=== PATIENT | female | born 1995 | race African-American/Black ===

== ENCOUNTER 2017-05-25 23:56 | Emergency (ER) | payer SELFPAY ==
[~2017-05-25] VITALS: Ht 162.6 cm; Wt 49.0 kg
[2017-05-26] MEDS ORDERED: SODIUM CHLORIDE 0.9% 1,000 ML IV ONE (01:24)
[2017-05-26] MEDS ORDERED: ONDANSETRON HCL 4MG/2ML VIAL IV ONE (01:30)
[2017-05-26 01:38] LABS: BASOPHILS % 0.8 % (0.0-2.0); EOSINOPHILS % 0.9 % (0.0-5.0); HEMATOCRIT. 40.6 % (36.0-48.0); HEMOGLOBIN. 13.9 g/dL (12.0-16.0); LYMPHOCYTES % 28.2 % (20.0-50.0); MEAN CORPUSCULAR HEMOGLOBIN 27.2 pg (28.0-32.0); MEAN CORPUSCULAR VOLUME 79.3 fL (81.0-99.0); MEAN PLATELET VOLUME 8.4 fl (7.4-10.4); MONOCYTES % 9.3 % (2.0-8.0); NEUTROPHILS % 60.8 % (40.0-76.0); PLATELET 240 x1000/uL (130-400); RED BLOOD CELL COUNT 5.12 mill/uL (4.2-5.4); RED CELL DISTRIBUTION WIDTH 13.6 % (11.6-14.6)
[2017-05-26 01:46] LABS: CHLORIDE 98 mEq/L (98-107)
[2017-05-26 02:02] LABS: CARBON DIOXIDE 22 mEq/L (21-32)
[2017-05-26 02:09] LABS: B-HCG QUANTITATIVE 62798 mIU/mL (<3)
[2017-05-26 05:45] VITALS: BP 127/69
== END 2017-05-26 06:00 | disposition home or self-care (01) ==
LOC: ER 23:56
DX: O21.0 Mild hyperemesis gravidarum (principal); F12.10 Cannabis abuse, uncomplicated; Z3A.01 Less than 8 weeks gestation of pregnancy
CPT/HCPCS: 36415; 76801; 80053; 83690; 84702; 85025; 93005; 96361; 96374; 99285; J2405; J7030; Z7610

== ENCOUNTER 2018-05-21 19:05 | Emergency (ER) | payer OTHER ==
[~2018-05-21] VITALS: Ht 160 cm; Wt 55.0 kg
[2018-05-21 19:10] VITALS: BP 131/86
== END 2018-05-21 21:45 | disposition left against medical advice (07) ==
LOC: EDBD → ER 19:05
DX: O26.891 Other specified pregnancy related conditions, first trimester (principal); M54.2 Cervicalgia; Z3A.12 12 weeks gestation of pregnancy; Z53.21 Procedure and treatment not carried out due to patient leaving prior to being seen by health care provider; Y08.89XA Assault by other specified means, initial encounter; Y93.89 Activity, other specified; Y92.410 Unspecified street and highway as the place of occurrence of the external cause; Y99.8 Other external cause status

== ENCOUNTER 2018-05-21 22:22 | Emergency (ER) | payer OTHER ==
[~2018-05-21] VITALS: Ht 160 cm; Wt 44.0 kg
[2018-05-22] MEDS ORDERED: SODIUM CHLORIDE 0.9% 1,000 ML IV ONE (05:51)
[2018-05-22 08:31] VITALS: BP 107/64
== END 2018-05-22 08:41 | disposition home or self-care (01) ==
LOC: ER 22:22
DX: O26.892 Other specified pregnancy related conditions, second trimester (principal); S39.81XA Other specified injuries of abdomen, initial encounter; Z3A.27 27 weeks gestation of pregnancy; Y04.0XXA Assault by unarmed brawl or fight, initial encounter; Y93.89 Activity, other specified; Y92.018 Other place in single-family (private) house as the place of occurrence of the external cause
CPT/HCPCS: 36415; 76801; 81025; 84702; 96360; 99285; J7030

== ENCOUNTER 2018-11-18 13:47 | Observation (INO) | payer OTHER ==
[~2018-11-18] VITALS: Ht 162.6 cm; Wt 55.3 kg
[2018-11-18] MEDS ORDERED: LACTATED RINGERS 1,000 ML IV SCH (15:00)
[2018-11-18] MEDS ORDERED: TERBUTALINE SULFATE 1MG/ML VIAL SUBCUT PRN (15:00)
[2018-11-18] MEDS ORDERED: CEFAZOLIN 2,000 MG in DEXT 5% WATER 100 ML IV SCH (15:30)
[2018-11-18 16:14] LABS: CLARITY URINE CLEAR (CLEAR); COLOR URINE YELLOW (YELLOW); KETONES URINE 1+ (NEGATIVE); LEUKOCYTE ESTERASE URINE 2+ (NEGATIVE); NITRITE URINE NEGATIVE (NEGATIVE); OCCULT BLOOD URINE NEGATIVE (NEGATIVE); PH URINE 6.5 (4.5-8.0); PROTEIN URINE NEGATIVE (NEGATIVE); SPECIFIC GRAVITY URINE 1.016 (1.005-1.030)
== END 2018-11-18 17:30 | disposition home or self-care (01) ==
LOC: 8 EST LDRP 13:47
PROVIDERS: ADMIT Obstetrics & Gynecology; ATTEND Obstetrics & Gynecology
DX: O62.9 Abnormality of forces of labor, unspecified (principal); Z3A.00 Weeks of gestation of pregnancy not specified
CPT/HCPCS: 81003; 96365; 96372; 99281; G0378; J0690; J3105; J7060; 96360; 96361

== ENCOUNTER 2018-11-23 15:29 | Observation (INO) | payer OTHER ==
[~2018-11-23] VITALS: Ht 162.6 cm; Wt 55.8 kg
== END 2018-11-23 19:00 | disposition home or self-care (01) ==
LOC: 8 EST LDRP 15:29
PROVIDERS: ADMIT Obstetrics & Gynecology; ATTEND Obstetrics & Gynecology
DX: Z34.03 Encounter for supervision of normal first pregnancy, third trimester (principal); Z3A.36 36 weeks gestation of pregnancy
CPT/HCPCS: 76815; 76818; 99281; G0378

== ENCOUNTER 2018-12-16 07:36 | Inpatient (IN) | payer OTHER ==
[~2018-12-16] VITALS: Ht 162.6 cm; Wt 58.1 kg
[2018-12-16 08:59] LABS: BASOPHILS % 0.3 % (0.0-2.0); EOSINOPHILS % 1.1 % (0.0-5.0); HEMATOCRIT. 32.9 % (36.0-48.0); HEMOGLOBIN. 11.3 g/dL (12.0-16.0); LYMPHOCYTES % 23.4 % (20.0-50.0); MEAN CORPUSCULAR HEMOGLOBIN 29.4 pg (28.0-32.0); MEAN CORPUSCULAR VOLUME 85.8 fL (81.0-99.0); MEAN PLATELET VOLUME 8.7 fl (7.4-10.4); MONOCYTES % 11.8 % (2.0-8.0); NEUTROPHILS % 63.4 % (40.0-76.0); PLATELET 186 x1000/uL (130-400); RED BLOOD CELL COUNT 3.83 mill/uL (4.2-5.4); RED CELL DISTRIBUTION WIDTH 15.1 % (11.6-14.6)
[2018-12-16] MEDS ORDERED: LIDOCAINE HCL 1% 20ML VIAL (Pyxis) INJ INFIL PRN (09:00)
[2018-12-16] MEDS ORDERED: PENICILLIN G POTASSIUM 5 MMU in DEXT 5% WATER 100 ML IV SCH (09:00)
[2018-12-16] MEDS ORDERED: METHYLERGONOVINE MALEATE 0.2 MG/ML IM PRN (09:00)
[2018-12-16] MEDS ORDERED: MISOPROSTOL 100MCG TABLET VG PRN (09:00)
[2018-12-16] MEDS ORDERED: NALOXONE HCL 0.4 MG/ML 1ML VIAL IM PRN (09:00)
[2018-12-16] MEDS ORDERED: BUTORPHANOL TARTRATE 2 MG/ML VIAL IV PRN (09:00)
[2018-12-16 09:07] LABS: INR 0.9; PARTIAL THROMBOPLASTIN TIME 30.5 sec (23.4-31.0); PROTHROMBIN TIME 9.6 sec (9.6-11.0)
[2018-12-16] MEDS: LACTATED RINGERS 1,000 ML IV SCH ×2 (09:12→09:26)
[2018-12-16 09:16] LABS: CLARITY URINE CLEAR (CLEAR); COLOR URINE YELLOW (YELLOW); KETONES URINE TRACE (NEGATIVE); LEUKOCYTE ESTERASE URINE 2+ (NEGATIVE); NITRITE URINE NEGATIVE (NEGATIVE); OCCULT BLOOD URINE NEGATIVE (NEGATIVE); PH URINE 6.5 (4.5-8.0); PROTEIN URINE NEGATIVE (NEGATIVE)
[2018-12-16 09:36] LABS: *COCAINE SCREEN URINE NEGATIVE (NEGATIVE)
[2018-12-16 09:37] LABS: METHADONE URINE SCREEN NEGATIVE (NEGATIVE)
[2018-12-16 09:38] LABS: *AMPHETAMINES SCREEN URINE NEGATIVE (NEGATIVE); *BARBITURATES SCREEN URINE NEGATIVE (NEGATIVE); *BENZODIAZEPINES SCREEN URINE NEGATIVE (NEGATIVE); CANNABINOID URINE SCREEN NEGATIVE (NEGATIVE); OPIATES URINE SCREEN NEGATIVE (NEGATIVE); PHENCYCLIDINE URINE SCREEN NEGATIVE (NEGATIVE)
[2018-12-16] MEDS ORDERED: EPHEDRINE SULFATE 50MG/ML VIAL ONE (09:53)
[2018-12-16] MEDS ORDERED: SODIUM CHLORIDE 0.9% 10ML VIAL ONE (09:53)
[2018-12-16] MEDS ORDERED: FENTANYL CITRATE/PF 50MCG/ML 2ML VIAL ONE (09:53)
[2018-12-16] MEDS ORDERED: BUPIVACAINE HCL/PF 0.25% (2.5MG/ML) 10ML ONE (09:54)
[2018-12-16] MEDS ORDERED: ROPIVACAINE HCL 2MG/ML (0.2%) 200ML BOTTLE IR ONE (10:00)
[2018-12-16] MEDS ORDERED: ROPIVACAINE HCL/PF EPIDURAL 200 ML EPI NR (10:00)
[2018-12-16] MEDS: DEXT 5%/LR + PITOCIN 20UNITS/L 1,000 ML IV SCH ×2 (11:26→15:21)
[2018-12-16 12:29] LABS: HEPATITIS B SURFACE ANTIGEN NEGATIVE
[2018-12-16] MEDS ORDERED: PENICILLIN G POTASSIUM 2.5 MMU in DEXTROSE 5% WATER 50 ML IV SCH (13:00)
[2018-12-16] MEDS ORDERED: DEXT 5%/LR + PITOCIN 20UNITS/L 1,000 ML IV SCH (14:46)
[2018-12-16] MEDS ORDERED: IBUPROFEN 400MG TABLET PO PRN (15:00)
[2018-12-16] MEDS ORDERED: TETANUS, DIPHTHERIA, PERTUSSIS VAC/PF 0.5ML (>7YR OLD) IM ONE (15:00)
[2018-12-16] MEDS ORDERED: LANOLIN OINT 0.25 GM TUBE TOP PRN (15:00)
[2018-12-16] MEDS ORDERED: DIPHENHYDRAMINE 25MG CAPSULE PO PRN (15:00)
[2018-12-16] MEDS ORDERED: BENZOCAINE/LANOLIN/ALOE VERA SPRAY TOP PRN (15:00)
[2018-12-16] MEDS ORDERED: ACETAMINOPHEN WITH CODEINE 300/30MG TABLET PO PRN (15:00)
[2018-12-16] MEDS ORDERED: HEMORRHOIDAL SUPP PR PRN (15:00)
[2018-12-16] MEDS ORDERED: GLYCERIN/WITCH HAZEL LEAF MEDICATED PAD TOP PRN (15:00)
[2018-12-16] MEDS ORDERED: INFLUENZA VIRUS VACCINE(AFLURIA) 0.5ML SYR IM ONE (15:00)
[2018-12-16 17:05] VITALS: BP 111/68
[2018-12-16 18:00] VITALS: BP 108/64
[2018-12-16] MEDS: IBUPROFEN 800MG TABLET PO PRN (18:57)
[2018-12-16] MEDS: DOCUSATE SODIUM 100MG CAPSULE PO SCH (20:48)
[2018-12-16 22:00] VITALS: BP 111/77
[2018-12-17 06:00] VITALS: BP 112/71
[2018-12-17 07:50] LABS: BASOPHILS % 0.2 % (0.0-2.0); EOSINOPHILS % 1.4 % (0.0-5.0); HEMATOCRIT. 29.8 % (36.0-48.0); HEMOGLOBIN. 10.2 g/dL (12.0-16.0); LYMPHOCYTES % 25.7 % (20.0-50.0); MEAN CORPUSCULAR HEMOGLOBIN 29.4 pg (28.0-32.0); MEAN CORPUSCULAR VOLUME 85.7 fL (81.0-99.0); MEAN PLATELET VOLUME 8.3 fl (7.4-10.4); MONOCYTES % 9.8 % (2.0-8.0); NEUTROPHILS % 62.9 % (40.0-76.0); PLATELET 165 x1000/uL (130-400); RED BLOOD CELL COUNT 3.48 mill/uL (4.2-5.4); RED CELL DISTRIBUTION WIDTH 15.6 % (11.6-14.6)
[2018-12-17 08:00] VITALS: BP 116/80
[2018-12-17] MEDS: PRENATAL VIT/FE FUMARATE/FA TABLET PO SCH (09:03)
[2018-12-17] MEDS: FERROUS SULFATE 325MG TABLET PO SCH ×3 (09:03→16:56)
[2018-12-17] MEDS: IBUPROFEN 800MG TABLET PO PRN ×2 (09:04→16:56)
[2018-12-17] MEDS ORDERED: MEDROXYPROGESTERONE ACETATE 150MG/ML VIAL IM SCH (15:00)
[2018-12-17 15:34] VITALS: BP 100/66
[2018-12-17 19:10] VITALS: BP 110/64
[2018-12-17] MEDS: DOCUSATE SODIUM 100MG CAPSULE PO SCH (21:06)
[2018-12-17 23:28] VITALS: BP 108/66
[2018-12-18] MEDS ORDERED: TETANUS, DIPHTHERIA, PERTUSSIS VAC/PF 0.5ML (>7YR OLD) IM ONE (06:00)
[2018-12-18] MEDS: FERROUS SULFATE 325MG TABLET PO SCH (08:53)
[2018-12-18] MEDS: PRENATAL VIT/FE FUMARATE/FA TABLET PO SCH (08:53)
[2018-12-18 09:11] VITALS: BP 116/75
== END 2018-12-18 10:30 | disposition home or self-care (01) | DRG 560 ==
LOC: OBSVTOIN 07:36 → 8 EST LDRP 07:36 → 8EST 18:20
PROVIDERS: ADMIT Specialist; ATTEND Specialist
PROC: 10E0XZZ Delivery of Products of Conception, External Approach (ICD-10-PCS; principal; 2018-12-16)
PROC: 0W8NXZZ Division of Female Perineum, External Approach (ICD-10-PCS; 2018-12-16)
PROC: 3E0S3BZ Introduction of Anesthetic Agent into Epidural Space, Percutaneous Approach (ICD-10-PCS; 2018-12-16)
PROC: 00HU33Z Insertion of Infusion Device into Spinal Canal, Percutaneous Approach (ICD-10-PCS; 2018-12-16)
DX: O99.824 Streptococcus B carrier state complicating childbirth (principal); D64.9 Anemia, unspecified; Z37.0 Single live birth; Z3A.38 38 weeks gestation of pregnancy; O99.03 Anemia complicating the puerperium
CPT/HCPCS: 36415; 80305; 86592; 86703; 86762; 86850; 86900; 87340; 90715; 99281; J1050; J2540; J2590; J2795; J3010; J3490; J7060; A4315

== ENCOUNTER 2019-07-01 21:45 | Emergency (ER) | payer OTHER ==
[~2019-07-01] VITALS: Ht 160 cm; Wt 50.0 kg
[2019-07-01 22:13] VITALS: BP 121/82
== END 2019-07-01 23:23 | disposition home or self-care (01) ==
LOC: ER 21:45
DX: R45.89 Other symptoms and signs involving emotional state (principal)
CPT/HCPCS: 99283

== ENCOUNTER 2021-04-22 18:06 | Emergency (ER) | payer OTHER ==
[~2021-04-22] VITALS: Ht 165.1 cm; Wt 73.0 kg
[2021-04-22] MEDS ORDERED: LORAZEPAM 2MG/ML CPJ IM STA (20:01)
[2021-04-22] MEDS ORDERED: HALOPERIDOL LACTATE 5MG/ML VIAL IM STA (20:01)
[2021-04-22] MEDS ORDERED: DIPHENHYDRAMINE 50MG/ML VIAL IM STA (20:01)
[2021-04-22 21:02] LABS: BASOPHILS % 0.5 % (0.0-2.0); EOSINOPHILS % 0.7 % (0.0-5.0); HEMOGLOBIN. 12.6 g/dL (12.0-16.0); LYMPHOCYTES % 46.1 % (20.0-50.0); MEAN CORPUSCULAR HEMOGLOBIN 27.8 pg (28.0-32.0); MEAN CORPUSCULAR VOLUME 81.7 fL (81.0-99.0); MEAN PLATELET VOLUME 8.3 fl (7.4-10.4); MONOCYTES % 7.5 % (2.0-8.0); NEUTROPHILS % 45.2 % (40.0-76.0); PLATELET 270 x1000/uL (130-400); RED BLOOD CELL COUNT 4.53 mill/uL (4.2-5.4); RED CELL DISTRIBUTION WIDTH 14.6 % (11.6-14.6)
[2021-04-22 21:07] LABS: CHLORIDE 108 mEq/L (98-107)
[2021-04-22 21:11] LABS: ETHANOL BLOOD < 10 mg/dL
[2021-04-22 21:21] LABS: HCG SCREEN NEGATIVE
[2021-04-22 22:00] LABS: CLARITY URINE CLOUDY (CLEAR); COLOR URINE YELLOW (YELLOW); KETONES URINE 3+ (NEGATIVE); LEUKOCYTE ESTERASE URINE 2+ (NEGATIVE); NITRITE URINE NEGATIVE (NEGATIVE); OCCULT BLOOD URINE NEGATIVE (NEGATIVE); PROTEIN URINE TRACE (NEGATIVE); SPECIFIC GRAVITY URINE 1.027 (1.005-1.030)
[2021-04-22 22:10] LABS: *AMPHETAMINES SCREEN URINE NEGATIVE (NEGATIVE); *BARBITURATES SCREEN URINE NEGATIVE (NEGATIVE); *BENZODIAZEPINES SCREEN URINE NEGATIVE (NEGATIVE); *COCAINE SCREEN URINE NEGATIVE (NEGATIVE); METHADONE URINE SCREEN NEGATIVE (NEGATIVE); OPIATES URINE SCREEN NEGATIVE (NEGATIVE); PHENCYCLIDINE URINE SCREEN NEGATIVE (NEGATIVE)
[2021-04-22 22:12] LABS: CANNABINOID URINE SCREEN PRESUMTIVE POSITIVE (NEGATIVE)
[2021-04-22] MEDS ORDERED: CEFTRIAXONE SODIUM 1 G/VIAL IM ONE (22:30)
[2021-04-22] MEDS ORDERED: POTASSIUM CHLORIDE 20MEQ TABLET SR PO ONE (23:30)
[2021-04-23] MEDS ORDERED: HALOPERIDOL LACTATE 5MG/ML VIAL IM ONE (13:00)
[2021-04-23] MEDS ORDERED: MIDAZOLAM HCL 2 MG/2 ML VIAL IM ONE (13:00)
[2021-04-23] MEDS: OLANZAPINE 5MG TABLET ODT PO SCH ×3 (17:00→19:44)
[2021-04-23] MEDS ORDERED: POTASSIUM CHLORIDE 20MEQ TABLET SR PO ONE (19:15)
[2021-04-23] MEDS: AMOXICILLIN 500 MG CAPSULE PO SCH (19:45)
[2021-04-23] MEDS ORDERED: LORAZEPAM 1MG TABLET PO ONE (19:45)
[2021-04-23] MEDS ORDERED: OLANZAPINE 10 MG/VIAL IM ONE (20:00)
[2021-04-24 02:05] LABS: CHLORIDE 107 mEq/L (98-107)
[2021-04-24] MEDS: OLANZAPINE 5MG TABLET ODT PO SCH ×2 (02:12→09:59)
[2021-04-24] MEDS ORDERED: OLANZAPINE 10 MG/VIAL IM NR (02:15)
[2021-04-24] MEDS: AMOXICILLIN 500 MG CAPSULE PO SCH ×2 (09:57→13:35)
[2021-04-24] MEDS ORDERED: DIPHENHYDRAMINE 50MG/ML VIAL IM STA (13:05)
[2021-04-24 15:02] VITALS: BP 118/87
== END 2021-04-24 15:05 | disposition short-term general hospital (02) ==
LOC: ER 18:45
DX: F23 Brief psychotic disorder (principal); F32.9 Major depressive disorder, single episode, unspecified; N39.0 Urinary tract infection, site not specified; R45.850 Homicidal ideations; Z75.1 Person awaiting admission to adequate facility elsewhere; Z91.14 Patient's other noncompliance with medication regimen; Z78.1 Physical restraint status; Z20.822 Contact with and (suspected) exposure to COVID-19
CPT/HCPCS: 36415; 80048; 80053; 80305; 80307; 80320; 80329; 81003; 81025; 82962; 84703; 85025; 87086; 96372; 99285; J0696; J1200; J1630; J2060; J2250; J3490; Z7610; G0480